=== PATIENT | female | born 1955 | race Hispanic/Latino ===

== ENCOUNTER 2024-06-28 18:25 | Emergency (ER) | payer MEDICARE, OTHER ==
[~2024-06-28] VITALS: Ht 149.9 cm; Wt 77.1 kg
[~2024-06-28 18:25] MED LIST: ASA81 MG PO; Z LESCOL PO; Z.0.BENICAR20 MG; [UNRECOGNIZED DRUG - OTHER] PO
[2024-06-28 19:28] VITALS: PULSE 79; RESP 18; TEMP 97.9; O2SAT 100
[2024-06-28] MEDS: CYCLOBENZAPRINE HCL 10 MG TAB PO ONE (19:46)
[2024-06-28] MEDS ORDERED: PEPCID20 MG PO (19:48)
[2024-06-28] MEDS ORDERED: CYCLOBENZAPRINE10 MG PO (19:48)
[2024-06-28] MEDS: KETOROLAC TROMETHAMINE 60 MG/2 ML VIAL IM ONE (19:53)
== END 2024-06-28 20:00 | disposition home or self-care (01) ==
LOC: ER 19:28
DX: M54.32 Sciatica, left side (principal); I10 Essential (primary) hypertension; E11.9 Type 2 diabetes mellitus without complications; E78.5 Hyperlipidemia, unspecified; E78.00 Pure hypercholesterolemia, unspecified; M81.0 Age-related osteoporosis without current pathological fracture
CPT/HCPCS: 99282; J1885